=== PATIENT | female | born 1955 | race African-American/Black ===

== ENCOUNTER 2018-11-06 16:59 | Emergency (ER) | payer OTHER ==
[2018-11-06 17:04] VITALS: BP 110/78; PULSE 94; TEMP 98; BMI 29.9
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
== END 2018-11-06 18:49 | disposition home or self-care (01) ==
LOC: JER 16:59
DX: H05.222 Edema of left orbit (principal); Y04.2XXA Assault by strike against or bumped into by another person, initial encounter; Y93.89 Activity, other specified; Y92.89 Other specified places as the place of occurrence of the external cause; Y99.8 Other external cause status; Y07.50 Unspecified non-family member, perpetrator of maltreatment and neglect
CPT/HCPCS: 70450-TC; 70486-TC; 72125-TC; 99282-25